=== PATIENT | female | born 1995 | race African-American/Black ===

== ENCOUNTER → 2016-06-07 | Emergency (ER) | payer OTHER ==
[~2016-06-07] MED LIST: CEPHALEXIN MONOHYDRATE 250 MG CAPSULE (FP) ONE; CEPHALEXIN MONOHYDRATE 500 MG CAPSULE (UD) PO ONE; METOCLOPRAMIDE HCL 10 MG TABLET (FP) PO ONE; SODIUM CHLORIDE 1,000 ML IV STA
--- NOTE | 2016-06-07 19:37 | PDOC ---
Rapid Medical Evaluation Time Seen by Provider: 06/07/16 19:37 Medical Evaluation: I have performed a brief in-person evaluation of this patient. The patient presents with a chief complaint of: 20 yo F approx 6 WGA presents with LLQ abdominal pain. Denies vaginal bleeding. +Nausea, diaphoresis. Pertinent physical exam findings: Well-appearing, no acute distress. Dry mucosa. I have ordered the following: CBC, CMP, B-HCG, UA. The patient will proceed to the ED for further evaluation.
[2016-06-07 19:40] VITALS: BP 125/77; PULSE 73; BMI 22.1
--- NOTE | 2016-06-07 20:37 | PDOC ---
History of Present Illness - General History Source: Patient Exam Limitations: No Limitations - History of Present Illness Initial Comments: 06/07/16 20:50 The patient is a 20 year old female (6 weeks ) with no significant past medical history who presents to the ED with left lower quadrant pain prior to arrival. Patient reports she was in her usual state of health and after eating she developed left lower quadrant pain. She also has complaints of nausea and dysuria. Patient denies vomiting and diarrhea. She also denies vaginal bleeding/discharge, hematuria, urgency, or frequency. Patient has not seen an FILM WRITER yet. The patient denies fever, chills, cough, SOB, chest pain, and palpitations. Allergies: NKDA Social History: No alcohol, tobacco, or drug use reported. Past Surgical History: None reported PCP: None reported <Zee Mathews - Last Filed: 06/07/16 20:50> - General History Source: Patient <Panchito Trujillo - Last Filed: 06/07/16 23:06> - General Chief Complaint: Pain, Acute Stated Complaint: ABDOMINAL PAIN/6 WKS Time Seen by Provider: 06/07/16 19:37 Past History <Zee Mathews - Last Filed: 06/07/16 20:50> - Past Medical History Other medical history: denies - Psycho/Social/Smoking Cessation Hx Suicidal Ideation: No Smoking History: Never smoked Hx Alcohol Use: No Drug/Substance Use Hx: No <Panchito Trujillo - Last Filed: 06/07/16 23:06> - Past Medical History Allergies/Adverse Reactions: Allergies Allergy/AdvReac Type Severity Reaction Status Date / Time No Known Allergies Allergy Verified 06/07/16 19:37 Home Medications: Ambulatory Orders Cephalexin Monohydrate [Keflex -] 500 mg PO BID #20 capsule 06/07/16 Metoclopramide HCl [Reglan -] 10 mg PO QID #28 tablet 06/07/16 Review of Systems - Review of Systems Able to Perform ROS?: Yes Comments:: 06/07/16 20:50 CONSTITUTIONAL: Absent: fever, no chills, no fatigue EYES: Absent: visual changes ENT: Absent: ear pain, no sore throat CARDIOVASCULAR: Absent: chest pain, no palpitations RESPIRATORY: Absent: cough, no SOB GI: +left lower quadrant pain, nausea Absent: no vomiting, no constipation, no diarrhea GENITOURINARY: +dysuria Absent: no frequency, no hematuria MUSCULOSKELETAL: Absent: back pain, no arthralgia, no myalgia SKIN: Absent: rash NEURO: Absent: headache <Zee Mathews - Last Filed: 06/07/16 20:50> *Physical Exam - Vital Signs Last Vital Signs Temp Pulse Resp BP Pulse Ox 97.8 F 73 18 125/77 100 06/07/16 20:30 06/07/16 19:37 06/07/16 19:37 06/07/16 19:37 06/07/16 19:37 - Physical Exam Comments: 06/07/16 20:50 GENERAL: Well-appearing, well-nourished. No apparent distress. HEENT: Normocephalic, atraumatic. PERRL, EOM intact. CARDIOVASCULAR: Normal S1, S2. Regular rate and rhythm. PULMONARY: Clear to auscultation bilaterally. ABDOMEN: Soft, non-distended, mild left lower quadrant tenderness. EXTREMITIES: Normal ROM in all four extremities. No gross deformities. SKIN: Warm, dry. No rash NEUROLOGICAL: No focal neurological deficits. <Zee Mathews - Last Filed: 06/07/16 20:50> - Vital Signs Last Vital Signs Temp Pulse Resp BP Pulse Ox 97.7 F 73 18 125/77 100 06/07/16 19:37 06/07/16 19:37 06/07/16 19:37 06/07/16 19:37 06/07/16 19:37 <Panchito Trujillo - Last Filed: 06/07/16 23:06> ED Treatment Course - LABORATORY CBC & Chemistry Diagram: 06/07/16 20:40 06/07/16 19:37 - ADDITIONAL ORDERS Additional order review: 06/07/16 20:40 RBC 4.32 MCV 84.7 MCHC 33.4 RDW 14.2 MPV 8.4 Neutrophils % 67.9 Lymphocytes % 23.2 Monocytes % 7.2 Eosinophils % 1.3 Basophils % 0.4 <Zee Mathews - Last Filed: 06/07/16 20:50> - LABORATORY CBC & Chemistry Diagram: 06/07/16 20:40 06/07/16 19:37 - RADIOLOGY Radiology Studies Ordered: Category Date Time Status TRANSVAGINAL US PREG [US] Stat Ultrasound 06/07/16 20:29 Ordered <Panchito Trujillo - Last Filed: 06/07/16 23:06> Medical Decision Making - Medical Decision Making 06/07/16 23:04 Dr. Trujillo: The scribe's documentation has been prepared under my direction and personally reviewed by me in its entirery. I confirm that the note above accurately reflects all work, treatment, procedures, and medical decision making performed by me. Pt US shows IUP at 8 weeks 5 days. FHT in the 160's. Pt advised to follow up with her charge loader as soon as possible. Rx Kelfex, Reglan transmitted to Pharmacy <Panchito Trujillo - Last Filed: 06/07/16 23:06> *DC/Admit/Observation/Transfer - Attestations Scribe Attestion: 06/07/16 20:50 Documentation prepared by Zee Mathews, acting as biomedical engineering supervisor for Panchito Trujillo MD <Zee Mathews - Last Filed: 06/07/16 20:50> - Discharge Dispostion Admit: No <Panchito Trujillo - Last Filed: 06/07/16 23:06> Diagnosis at time of Disposition: Qualifiers: Weeks of gestation: 8 weeks Qualified Code(s): Z3A.08 - 8 weeks gestation of - Discharge Dispostion Disposition: HOME Condition at time of disposition: Stable - Prescriptions Prescriptions: Cephalexin Monohydrate [Keflex -] 500 mg PO BID #20 capsule Metoclopramide HCl [Reglan -] 10 mg PO QID #28 tablet - Referrals Referrals: Jordan Nicholson MD [Staff Physician] - - Patient Instructions Printed Discharge Instructions: Medications and
[2016-06-07 20:39] LABS: BASOPHIL 0.4 % (0-2.0); EOSINOPHIL 1.3 % (0-4.5); MCH 28.3 pg (25.7-33.7); MCHC 33.4 g/dl (32.0-36.0); MEAN CELL VOLUME 84.7 fl (80-96); MEAN PLT VOLUME 8.4 fl (7.5-11.1); NEUTROPHILS 67.9 % (42.8-82.8); PLATELET COUNT 295 K/MM3 (134-434); RDW 14.2 % (11.6-15.6); WHITE BLOOD COUNT 6.8 K/mm3 (4.0-10.0)
[2016-06-07 20:46] VITALS: TEMP 97.8
[2016-06-07 20:46] LABS: ALBUMIN 3.5 g/dl (3.4-5.0); ANION GAP 8 (8-16); BILIRUBIN,TOTAL 0.4 mg/dL (0.2-1.0); CALCIUM 9.1 mg/dL (8.5-10.1); CO2 26 mmol/L (21-32); CREATININE 0.6 mg/dL (0.55-1.02); GLUCOSE,RANDOM 128 mg/dL (74-106); SGOT/AST 11 U/L (15-37); SGPT/ALT 23 U/L (12-78); TOT PROT 6.9 g/dl (6.4-8.2)
[2016-06-07 21:03] LABS: ALK PHOS 36 U/L (45-117)
== END | disposition home or self-care (01) ==
LOC: JER 19:19
PROC: 3E0337Z Introduction of Electrolytic and Water Balance Substance into Peripheral Vein, Percutaneous Approach (ICD-10-PCS; principal; 2016-06-07)
DX: O26.891 Other specified pregnancy related conditions, first trimester (principal); Z3A.08 8 weeks gestation of pregnancy
CPT/HCPCS: 36415; 76801-TC; 80053; 84702; 85025; 86850; 86900; 86901; 99281-25

== ENCOUNTER 2017-08-09 08:17 | Emergency (ER) | payer OTHER ==
--- NOTE | 2017-08-09 08:47 | PDOC ---
History of Present Illness - General History Source: Patient Exam Limitations: No Limitations - History of Present Illness Initial Comments: 08/09/17 10:46 The patient is a 22 year old female (), with no significant PMH, who presents to the emergency department with progressively worsening dysuria and urinary frequency for 2 days. The patient states that yesterday she noticed she was urinating more than usual but this morning she has had worsening burning with urination. The patient states when she was driving to the ED this morning she had an episode of lightheadedness where she had to bone char puller and subsequently urinated . She denies any chest pain, palpitations, or loss of consciousness. The patient also reports she [facility] and [facility] a 3 day course of antibiotics (patient is unsure of the name of the abx). The patient states she just recently finished her menstrual period which she states was normal but reports she is still noticing some vaginal spotting. The patient also endorses suprapubic abdominal discomfort. The patient denies chest pain, palpitations, shortness of breath or headache. Denies fever, chills, nausea, vomit, diarrhea and constipation. Denies vaginal discharge or hematuria. Allergies: NKDA Past surgical history: None reported. Social history: No reported PCP: None reported. <Silviano Solis - Last Filed: 08/09/17 10:46> <Marc Rojas - Last Filed: 08/09/17 10:49> - General Chief Complaint: Urinary Problem Stated Complaint: VAGINAL BLEEDING, LIGHTHEADED Time Seen by Provider: 08/09/17 08:25 Past History <Silviano Solis - Last Filed: 08/09/17 10:46> - Past Medical History COPD: No Other medical history: denies medical hx - Suicide/Smoking/Psychosocial Hx Smoking History: Never smoked Hx Alcohol Use: Yes Drug/Substance Use Hx: Yes Substance Use Type: Alcohol, Marijuana <Marc Rojas - Last Filed: 08/09/17 10:49> - Past Medical History Allergies/Adverse Reactions: Allergies Allergy/AdvReac Type Severity Reaction Status Date / Time No Known Allergies Allergy Verified 06/07/16 19:37 Home Medications: Ambulatory Orders Cephalexin Monohydrate [Keflex -] 500 mg PO BID #20 capsule 03/08/17 Metoclopramide HCl [Reglan -] 10 mg PO QID #28 tablet 06/07/16 Ciprofloxacin [Cipro -] 500 mg PO Q12H #14 tablet 08/09/17 Review of Systems - Review of Systems Comments:: 08/09/17 10:47 CONSTITUTIONAL: No reported: Fever, Chills, Diaphoresis, Generalized Weakness, Malaise, Loss of Appetite HEENT: Reported: No reported: Rhinorrhea, Nasal Congestion, Throat Pain, Throat Swelling, Difficulty Swallowing, Mouth Swelling, Ear Pain, Eye Pain CARDIOVASCULAR: No reported: Chest Pain, Syncope, Palpitations, Irregular Heart Rate, Peripheral Edema RESPIRATORY: No reported: Cough, Shortness of Breath, SOB with Exertion, Orthopnea, Wheezing , Stridor, Hemoptysis GASTROINTESTINAL: Reported: (+) Suprapubic abdominal discomfort. No reported: Abdominal Distension, Nausea, Vomiting, Diarrhea, Constipation, Melena, Hematochezia GENITOURINARY: Reported: (+) Dysuria. (+) Frequency. (+) Urinary incontinence. No reported: Hesitancy, Flank Pain, Genital Pain MUSCULOSKELETAL: Reported: No reported: Myalgia, Arthralgia, Joint Swelling, Neck Pain SKIN: No reported: Rash, Itching, Pallor HEMEATOLOGIC/IMMUNOLOGIC: No reported: Easy Bleeding, Easy Bruising, Lymphadenopathy, Frequent infections ENDOCRINE: No reported: Unexplained Weight Gain, Unexplained Weight Loss, Heat Intolerance , Cold Intolerance NEUROLOGIC: Reported: (+) Lightheadedness (Resolved). No reported: Headache, Focal Weakness, Paresthesias, Vertigo, Unsteady Gait, Seizure, Mental Status Changes. PSYCHIATRIC: No reported: Anxiety, Depression <Silviano Solis - Last Filed: 08/09/17 10:46> *Physical Exam - Vital Signs Last Vital Signs Temp Pulse Resp BP Pulse Ox 97.4 F L 75 16 140/94 99 08/09/17 08:30 08/09/17 08:30 08/09/17 08:30 08/09/17 08:30 08/09/17 08:30 - Physical Exam Comments: 08/09/17 10:48 GENERAL: The patient is awake, alert, and fully oriented, Nontoxic - in no acute distress. HEAD: Normocephalic, atraumatic. EYES: extraocular movements intact, sclera anicteric, conjunctiva clear. ENT: Normal voice, Moist mucous membranes. NECK: Normal range of motion, supple LUNGS: Breath sounds equal, clear to auscultation bilaterally. No wheezes, no rhonchi, no rales. HEART: Regular rate and rhythm, without murmur, rub or gallop. ABDOMEN: Soft, minimal suprapubic tenderness, No guarding, no rebound. No CVA tenderness EXTREMITIES: Normal range of motion, no edema. No cyanosis. No erythema, or tenderness. NEUROLOGICAL: No facial assymetry, Normal speech, PSYCH: Normal mood, normal affect. SKIN: Warm, Dry, normal turgor, <Silviano Solis - Last Filed: 08/09/17 10:46> - Vital Signs Last Vital Signs Temp Pulse Resp BP Pulse Ox 97.4 F L 75 16 140/94 99 08/09/17 08:30 08/09/17 08:30 08/09/17 08:30 08/09/17 08:30 08/09/17 08:30 <Marc Rojas - Last Filed: 08/09/17 10:49> Heart Score/ECG Review - ECG Impressions Comment:: 08/09/17 10:10 Twelve-lead EKG was performed and reviewed by me. There is normal sinus rhythm with a normal rate. Rate of 69 Normal axis No S T wave changes suggestive of ischemia <Marc Rojas - Last Filed: 08/09/17 10:49> ED Treatment Course - LABORATORY CBC & Chemistry Diagram: 08/09/17 09:30 08/09/17 09:30 - ADDITIONAL ORDERS Additional order review: Laboratory Results 08/09/17 08/09/17 09:30 09:00 Sodium 142 Potassium 5.0 Chloride 110 H Carbon Dioxide 27 Anion Gap 5 L BUN 10 Creatinine 0.8 Creat Clearance w eGFR > 60 Random Glucose 83 Calcium 8.9 Total Bilirubin 0.8 D AST 37 ALT 24 Alkaline Phosphatase 42 L Total Protein 7.3 Albumin 4.0 Urine Color Straw Urine Appearance Slcloudy Urine pH 5.0 Ur Specific [place] 1.013 Urine Protein Negative Urine Glucose (UA) Negative Urine Ketones Negative Urine Blood Negative Urine Nitrite Negative Urine Bilirubin Negative Urine Urobilinogen Negative Ur Leukocyte Esterase 3+ H Urine WBC (Auto) 74 Urine RBC (Auto) 1 Ur Epithelial Cells Rare Urine Mucus Rare 08/09/17 09:30 RBC 4.11 MCV 85.7 MCHC 33.1 RDW 14.7 MPV 8.8 Neutrophils % 49.8 D Lymphocytes % 38.1 D Monocytes % 9.8 Eosinophils % 1.7 Basophils % 0.6 <Silviano Solis - Last Filed: 08/09/17 10:46> - LABORATORY CBC & Chemistry Diagram: 08/09/17 09:30 08/09/17 09:30 <Marc Rojas - Last Filed: 08/09/17 10:49> Medical Decision Making - Medical Decision Making 08/09/17 08:45 22y F no pmhx presents with complaint of dysuria x 2 days, associated wit hsuprapubic abd pain, patient also endorses approximate 30 minute episode of feeling lightheaded while she was driving to the hospital that has since resolved. was treated for a UTI at (doesnt remember the abx, BID x 3 days), had her period and dysuria restarted. No associated fever, chills, nausea vomiting, and back pain, chest pain, cough On exam the patient is well-appearing , in no distress with an unremarkable physical exam Differential for the patient's symptoms likely UTI, will check urine cultures, CBC, CMP to rule out anemia, metabolic derangements as a cause for his lightheadedness. 08/09/17 10:18 The patient's blood work is unremarkable UA suggestive of UTI, urine culture was sent. The patient does not room her the name of the medicine but remembers discharged with T and was twice a day 3 days suspect it may hav ebeen trimethoprim sulfamethoxazole. Will start patient on Cipro. We'll have her follow-up with her PMD Return precautions were discussed I discussed the physical exam findings, ancillary test results and final diagnoses with the patient. I answered all of the patient's questions. The patient was satisfied with the care received and felt comfortable with the discharge plan and treatment plan. The patient will call their primary care physician within 24 hours to arrange follow-up and will return to the Emergency Department with any new, persistent or worsening symptoms. <Marc Rojas - Last Filed: 08/09/17 10:49> *DC/Admit/Observation/Transfer - Attestations Scribe Attestion: 08/09/17 10:48 Documentation prepared by Silviano Solis, acting as medical physics professor for Marc Rojas MD. <Silviano Solis - Last Filed: 08/09/17 10:46> - Discharge Dispostion Decision to Admit order: No <Marc Rojas - Last Filed: 08/09/17 10:49> Diagnosis at time of Disposition: Lightheaded Urinary tract infection Qualifiers: Urinary tract infection type: acute cystitis Hematuria presence: with hematuria Qualified Code(s): N30.01 - Acute cystitis with hematuria - Discharge Dispostion Disposition: HOME Condition at time of disposition: Improved - Prescriptions Prescriptions: Ciprofloxacin [Cipro -] 500 mg PO Q12H #14 tablet - Referrals Referrals: Jeaneth Canela MD [Staff Physician] - - Patient Instructions Printed Discharge Instructions: DI for Urinary Tract Infection (UTI) Additional Instructions: Return to the emergency department immediately with ANY new, persistent or worsening symptoms including any fevers, chills, back pain, nausea, vomiting or any other concerns. Take the antibiotics until you have completed the course of antibiotiics You MUST call and follow up with your doctor in 2-3 days, if you need one you may follow up with Dr. Ned Myers for further evaluation of your symptoms. Results were discussed with you. Please make sure your doctor reviews the results of your emergency evaluation. Print Language: LAO - Post Discharge Activity Forms/Work/School Notes: Back to Work
[2017-08-09 09:03] VITALS: BP 140/94; PULSE 75; TEMP 97.4; BMI 25.0
[2017-08-09 09:12] LABS: URINE APPEARANCE SLCLOUDY; URINE BILIRUBIN NEGATIVE (<2.0 mg/dL); URINE COLOR STRAW; URINE GLUCOSE (UA) NEGATIVE (NEGATIVE); URINE KETONE NEGATIVE (NEGATIVE); URINE NITRITE NEGATIVE (NEGATIVE); URINE PROTEIN NEGATIVE (NEGATIVE); URINE UROBILINOGEN NEGATIVE mg/dL (0.2-1.0)
[2017-08-09 09:13] LABS: URINE LEUK ESTERASE 3+ (NEGATIVE)
[2017-08-09 09:27] LABS: EPI CELLS RARE /HPF (FEW); URINE MUCUS RARE
[2017-08-09 09:50] LABS: BASO % 0.6 % (0-2.0); EOS % 1.7 % (0-4.5); HEMATOCRIT 35.2 % (32.4-45.2); HEMOGLOBIN 11.7 GM/dL (10.7-15.3); LYMPH % 38.1 % (8-40); MCH 28.4 pg (25.7-33.7); MCHC 33.1 g/dl (32.0-36.0); MEAN CELL VOLUME 85.7 fl (80-96); MEAN PLT VOLUME 8.8 fl (7.5-11.1); MONO % 9.8 % (3.8-10.2); NEUT % 49.8 % (42.8-82.8); PLATELET COUNT 285 K/MM3 (134-434); RBC 4.11 M/mm3 (3.60-5.2); RDW 14.7 % (11.6-15.6); WHITE BLOOD COUNT 4.1 K/mm3 (4.0-10.0)
[2017-08-09 10:07] LABS: ANION GAP 5 (8-16); BLOOD UREA NITROGEN 10 mg/dL (7-18); CALCIUM 8.9 mg/dL (8.5-10.1); CHLORIDE 110 mmol/L (98-107); CO2 27 mmol/L (21-32); GLUCOSE,RANDOM 83 mg/dL (74-106); SODIUM 142 mmol/L (136-145)
[2017-08-09 10:12] LABS: ALK PHOS 42 U/L (45-117); BILIRUBIN,TOTAL 0.8 mg/dL (0.2-1.0); CREATININE 0.8 mg/dL (0.55-1.02); SGOT/AST 37 U/L (15-37); SGPT/ALT 24 U/L (12-78); TOT PROT 7.3 g/dl (6.4-8.2)
--- NOTE | 2017-08-10 09:46 | EKG ---
Test Reason : Blood Pressure : / mmHG Vent. Rate : 069 BPM Atrial Rate : 069 BPM P-R Int : 164 ms QRS Dur : 070 ms QT Int : 368 ms P-R-T Axes : 044 032 024 degrees QTc Int : 394 ms NORMAL SINUS RHYTHM WITH SINUS ARRHYTHMIA Confirmed by ULIS F DIXON MD ([id number]) on 08/10/2017 9:46:06 AM Referred By: Confirmed By:LUIS F DIXON MD
--- NOTE | 2017-08-11 07:14 | PDOC ---
Patient Follow-up (Call Back) - Post ED Follow - Up Condition at time of discharge: Improved Disposition at time of original discharge: HOME Reason for Call Back: Abnwl. Microbiology (Urine with over 100,000 colony count. Pt. on cipro, pending sensitivity)
--- NOTE | 2017-08-12 08:16 | PDOC ---
Patient Follow-up (Call Back) - Post ED Follow - Up Condition at time of discharge: Improved Disposition at time of original discharge: HOME Reason for Call Back: Abnwl. Microbiology (Bacteria sensitive to cipro. No further action required at this time.)
== END 2017-08-09 10:46 | disposition home or self-care (01) ==
LOC: JER 08:17
DX: N30.01 Acute cystitis with hematuria (principal); R42 Dizziness and giddiness
CPT/HCPCS: 36415; 80053; 81003; 81015; 85025; 87086; 87186; 93005; 93010; 99282-25

== ENCOUNTER 2019-04-20 18:06 | Emergency (ER) | payer OTHER ==
[2019-04-20 18:19] VITALS: TEMP 100.3; BMI 24.0
[2019-04-20] MEDS ORDERED: ACETAMINOPHEN 500 MG TABLET (FP) PO ONE (20:27)
[2019-04-20] MEDS ORDERED: ACETAMINOPHEN 500 MG TABLET (FP) ONE (20:28)
--- NOTE | 2019-04-20 20:31 | PDOC ---
History of Present Illness - General Chief Complaint: Respiratory Stated Complaint: COLD SYMPTOMS Time Seen by Provider: 04/20/19 19:52 History Source: Patient Exam Limitations: No Limitations - History of Present Illness Initial Comments: 04/20/19 20:28 HISTORY OF PRESENT ILLNESS: 23-year-old woman presents emergency department for evaluation of fevers, chills, sore throat, body aches, moist productive cough for 3 to 4 days. 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 Patient has been experiencing similar symptoms as many of the children which is why she came to the emergency department. Patient has been taken TheraFlu and has increased her hydration prior to coming to the emergency department. No recent travel. PAST MEDICAL HISTORY: Denies past medical history SURGICAL HISTORY: Denies ALLERGIES: No known drug allergies REVIEW OF SYSTEMS General/Constitutional: +fever. Denies weakness, weight change. HEENT: Denies change in vision. Denies ear pain or discharge. +sore throat. Cardiovascular: Denies chest pain or shortness of breath. Respiratory: Moist productive cough. Denies wheezing, or hemoptysis. Gastrointestinal: Denies nausea, vomiting, diarrhea or constipation. Denies rectal bleeding. Genitourinary: Denies dysuria, frequency, or change in urination. Musculoskeletal: +myalgias. Denies neck or back pain. Skin and breasts: Denies rash or easy bruising. Neurologic: Denies headache, vertigo, loss of consciousness, or loss of sensation. Psychiatric: Denies depression or anxiety. Endocrine: Denies increased thirst. Denies abnormal weight change. Hematologic/Lymphatic: Denies anemia, easy bleeding, or history of blood clots. Allergic/Immunologic: Denies hives or skin allergy. Denies latex allergy. PHYSICAL EXAM General Appearance: Well-appearing, appropriately dressed. No apparent distress , no intoxication. HEENT: EOMI, PERRLA, normal voice, TMs retracted bilaterally. No conjunctival pallor. No photophobia, scleral icterus. Oropharynx erythematous without lesions or exudate. Cobblestoning noted in the posterior. No nasal discharge present. Neck: Supple. Trachea midline. No tenderness, rigidity, carotid bruit, stridor , or thyromegaly. Nontender anterior cervical lymphadenopathy present. Respiratory/Chest: Lungs CTAB. No shortness of breath, chest tenderness, respiratory distress, accessory muscle use. No crackles, rales, rhonchi, stridor , wheezing, dullness Cardiovascular: RRR. S1, S2. No JVD, murmur, bradycardia, tachycardia. Vascular Pulses: Dorsalis-Pedis (R): 2+, Dorsalis-Pedis (L): 2+ Gastrointestinal/Abdominal: Normal bowel sounds. Abdomen soft, non-distended. No tenderness or rebound tenderness. No organomegaly, pulsatile mass, guarding, hernia, hepatomegaly, splenomegaly. Musculoskeletal/Extremities: Normal inspection. FROM of all extremities, normal capillary refill. Pelvis Stable. No CVA tenderness. No tenderness to extremities, pedal edema, swelling, erythema or deformity. Integumentary: Appropriate color, dry, warm. No cyanosis, erythema, jaundice or rash Neurologic: parts cleaner II-XII intact. Fully oriented, alert. Appropriate mood/affect. Motor strength 5/5. No appreciable EOM palsy, facial droop or sensory deficit. 04/20/19 20:30 Past History - Past Medical History Allergies/Adverse Reactions: Allergies Allergy/AdvReac Type Severity Reaction Status Date / Time No Known Allergies Allergy Verified 04/20/19 18:18 Home Medications: Ambulatory Orders Cephalexin Monohydrate [Keflex -] 500 mg PO BID #20 capsule 06/07/16 Metoclopramide HCl [Reglan -] 10 mg PO QID #28 tablet 06/07/16 Ciprofloxacin [Cipro -] 500 mg PO Q12H #14 tablet 08/09/17 COPD: No - Psycho Social/Smoking Cessation Hx Smoking History: Never smoked Hx Alcohol Use: Yes Drug/Substance Use Hx: Yes Substance Use Type: Alcohol, Marijuana *Physical Exam - Vital Signs Last Vital Signs Temp Pulse Resp BP Pulse Ox 100.3 F H 122 H 18 126/68 99 04/20/19 18:16 04/20/19 18:16 04/20/19 18:16 04/20/19 18:16 04/20/19 18:16 Medical Decision Making - Medical Decision Making 04/20/19 20:28 A/P: 23-year-old woman with 4 days of flulike symptoms 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 As patient is having flulike symptoms but is outside the window will defer testing at this time as supportive treatment will be my recommendation. Patient has verbalized understanding of discharge instructions and understands why she will not be receiving Tamiflu. Discharge home to follow-up with PMD as needed. Discharge - Discharge Information Problems reviewed: Yes Clinical Impression/Diagnosis: Influenza-like illness Condition: Stable Disposition: HOME - Admission No - Follow up/Referral - Patient Discharge Instructions Additional Instructions: Rest, drink lots of fluids: Teas, water, soups, Pedialyte Saltwater gargles Steamy showers/seem to face break up mucus Avoid contact with others until fevers and cough resolved Lots of handwashing and good hygiene Continue [id number] medications for symptomatic relief Tylenol or Motrin for fever and pain Followup with private physician in one to 2 days as needed Return to emergency department for worsened symptoms, fevers, dehydration - Post Discharge Activity Work/Back to School Note: Back to Work
[2019-04-20 20:57] VITALS: BP 121/71; PULSE 87
== END 2019-04-20 20:50 | disposition home or self-care (01) ==
LOC: JERFT 18:06
DX: J11.1 Influenza due to unidentified influenza virus with other respiratory manifestations (principal)
CPT/HCPCS: 99281-25

== ENCOUNTER 2020-12-16 20:13 | Emergency (ER) | payer BC, OTHER ==
[2020-12-16 20:30] VITALS: BP 127/85; PULSE 60; TEMP 98.3; BMI 24.7
[2020-12-16] MEDS ORDERED: AZITHROMYCIN 500 MG TABLET PO ONE (21:00)
[2020-12-16] MEDS ORDERED: AZITHROMYCIN 250 MG TABLET ONE ×2 (21:28→21:33)
[2020-12-16] MEDS ORDERED: LIDOCAINE HCL 1%, 10 MG/ML (20ML VIAL) ONE (21:29)
[2020-12-16 22:58] LABS: PH,URINE 5.5 (5.0-8.0); URINE APPEARANCE Clear; URINE BILIRUBIN Negative (NEGATIVE); URINE COLOR Yellow; URINE GLUCOSE (UA) Negative (NEGATIVE); URINE KETONE Negative (NEGATIVE); URINE LEUK ESTERASE Negative (NEGATIVE); URINE NITRITE Negative (NEGATIVE); URINE PROTEIN Negative (NEGATIVE); URINE UROBILINOGEN 0.2 mg/dL (0.2-1.0)
[2020-12-16 23:14] LABS: HIV INTERPRETATION NEGATIVE (NEGATIVE)
== END 2020-12-16 22:30 | disposition home or self-care (01) ==
LOC: JER 20:13
DX: A60.04 Herpesviral vulvovaginitis (principal); Z20.2 Contact with and (suspected) exposure to infections with a predominantly sexual mode of transmission
CPT/HCPCS: 36415; 81003; 84703; 86694; 86695; 86696; 86780; 87077; 87086; 87186; 87389; 87491; 87591; 99284-25

== ENCOUNTER 2021-11-13 03:01 | Emergency (ER) | payer BC, OTHER ==
[2021-11-13 03:42] VITALS: BP 111/73; PULSE 69; RESP 18; TEMP 98.3; BMI 26.5
== END 2021-11-13 05:58 | disposition left against medical advice (07) ==
LOC: JER 03:01
DX: N94.6 Dysmenorrhea, unspecified (principal)
CPT/HCPCS: 99281-25